=== PATIENT | female | born 1940 ===

== ENCOUNTER 2018-05-17 10:22 | Day surgery (SDC) | payer MEDICARE, MEDICAID ==
[2018-05-17 11:27] VITALS: BMI 30.2
[2018-05-17] MEDS ORDERED: Lidocaine 1% Inj (20ml) ONE (13:11)
--- NOTE | 2018-05-17 13:40 | CP.SDSHP ---
Same Day Surgery H & P - History Proposed Procedure: US guided FNA of left thyroid mass Pre-Op Diagnosis: thyroid mass - Allergies Allergies: Allergies Penicillins Allergy (Verified 05/17/18 11:28) RASH hives - Physical Exam Vital Signs: Vital Signs 05/17/18 05/17/18 11:28 13:27 Temperature 97.5 F L 97.4 F L Pulse Rate 74 60 Respiratory 20 16 Rate Blood Pressure 128/52 L 150/62 O2 Sat by Pulse 97 100 Oximetry Mental Status: Alert & Oriented x3 Neuro: WNL - Impression Impression: Pt with left thyroid mass. US guided FNA of left thyroid mass. Pt. Evaluated Today:Candidate for Anesthesia & Procedure: No - Date & Time Date: 05/17/18 Time: 13:15 Short Stay Discharge - Short Stay Discharge Admitting Diagnosis/Reason for Visit: THYROID NODULE Disposition: HOME/ ROUTINE Referrals: Neto Chaves MD [Primary Care Provider] -
--- NOTE | 2018-05-17 13:42 | PCM.SURG1 ---
Surgeon's Initial Post Op Note - Surgeon's Notes Surgeon: Anderson Hernandez MD Manager Clinical Pharmacy: NONE Type of Anesthesia: Local Pre-Operative Diagnosis: thyroid mass Operative Findings: Large mixed solid and cystic left thyoid mass. Post-Operative Diagnosis: thyroid mass Operation Performed: US guided FNA of left thyroid mass Specimen/Specimens Removed: 25 g FNA X 5 passes Estimated Blood Loss: EBL {In ML}: 0 Blood Products Given: N/A Drains Used: No Drains Post-Op Condition: Good Date of Surgery/Procedure: 05/17/18 Time of Surgery/Procedure: 13:40
[2018-05-17 13:48] VITALS: BP 140/68; PULSE 87; RESP 18; TEMP 97.5; O2SAT 98
--- NOTE | 2018-05-17 13:49 | US ---
PROCEDURE: Date of Procedure: 05/17/2018 PROCEDURE: 1. Ultrasound guided FNA of left thyroid nodule, CPT 10168 2. Ultrasound guidance for FNA, 6[address]80 Medications: 3cc 1% Lidocaine HISTORY: Enlarged left thyroid mass TECHNIQUE: Following informed consent and procedure time-out, a limited ultrasound patient's neck confirmed the presence of a 5 cm complex left thyroid mass which is mixed solid and cystic. After the patient's neck was prepped and draped in the usual sterile fashion, the skin was anesthetized with 1% lidocaine. Ultrasound-guided fine needle aspiration was then performed of the dominant left thyroid nodule. A total of 5 passes were made into the nodule with 25 gauge needle under ultrasound guidance. The FNA specimen was sent for routine pathology and genetics. Post biopsy ultrasound showed no hematoma. IMPRESSION: Ultrasound-guided FNA of the dominant left thyroid nodule.
== END 2018-05-17 14:30 | disposition home or self-care (01) ==
LOC: H.OPSURG 10:22
PROVIDERS: ATTEND Family Medicine
DX: E04.1 Nontoxic single thyroid nodule (principal); Z88.0 Allergy status to penicillin